=== PATIENT | female | born 1985 | race Caucasian/White ===

== ENCOUNTER 2019-10-03 11:49 | Emergency (ER) | payer OTHER ==
[~2019-10-03] VITALS: Ht 167.6 cm; Wt 63.5 kg
== END 2019-10-03 13:40 | disposition home or self-care (01) ==
LOC: ER 11:49
DX: G44.209 Tension-type headache, unspecified, not intractable (principal)

== ENCOUNTER 2019-10-13 09:22 | Emergency (ER) | payer OTHER ==
[~2019-10-13] VITALS: Ht 167.6 cm; Wt 62.6 kg
[2019-10-13] MEDS ORDERED: INTESTINEX680 M1 PO (10:35)
[2019-10-13] MEDS ORDERED: AUGMENTIN PO (10:35)
[2019-10-13] MEDS ORDERED: FLONASE16 GM PO (10:35)
[2019-10-13] MEDS ORDERED: CLARITIN-D 241 EACH PO (10:35)
== END 2019-10-13 11:04 | disposition home or self-care (01) ==
LOC: ER 09:22
DX: J32.8 Other chronic sinusitis (principal)